=== PATIENT | male | born 1955 | race Caucasian/White ===

== ENCOUNTER 2019-07-18 07:02 | Outpatient (CLI) | payer OTHER, SELFPAY ==
--- NOTE | ~2019-07-18 | XR_ITS ---
XR cervical spine 4-5V DATE: 07/18/2019 07:34 INDICATION: Posterior neck pain radiating down right side. No injury. TECHNIQUE: AP, open-mouth, lateral, swimmer views COMPARISON: None FINDINGS: There is minimal anterolisthesis at C4-5 and C5-6. C1 and C2 are normally aligned and the odontoid process is intact. No fracture or dislocation or lock ed facet. No prevertebral soft tissue swelling. Cervical interspaces are relatively preserved. Degenerative changes are noted at the apophyseal joints. 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 IMPRESSION: Minimal anterolisthesis at C4-5 and C5-C6; degenerative change at t he apophyseal joints
[2019-07-18 07:35] LABS: Basophils Percent Auto 0.6 % (0.2-1.2); Eosinophils Absolute Auto 0.1 K/mm3 (0-0.3); Eosinophils Percent Auto 2.6 % (0-4.4); Hematocrit 41.1 % (42.0-52.0); Hemoglobin 13.9 g/dL (14.0-18.0); Immature Granulocyte Absolute 0.02 K/mm3 (0.00-0.031); Immature Granulocyte Percent A 0.4 % (0-0.5); Lymphocytes Absolute Auto 1.73 K/mm3 (0.9-3.2); Lymphocytes Percent Auto 32.1 % (18.3-44.2); Mean Corpuscular HGB Conc 33.8 g/dl (32-36); Mean Corpuscular Hemoglobin 31.7 pg (26-34); Mean Corpuscular Volume 93.6 fl (80-100); Monocytes Absolute Auto 0.6 K/mm3 (0.1-0.6); Monocytes Percent Auto 10.8 % (2.6-8.5); Neutrophils Absolute Auto 2.9 K/mm3 (1.3-6.7); Neutrophils Percent Auto 53.5 % (45.5-73.1); Platelet Count Result 245 k/mm3 (150-375); Red Blood Count 4.39 M/mm3 (4.6-6.20); Red Cell Distribution Width 12.2 % (11.5-14.5); White Blood Count 5.4 K/mm3 (4.5-10.0)
[2019-07-18 07:42] LABS: Hemoglobin A1C 7.5 % (<5.7)
[2019-07-18 07:46] LABS: Alanine Aminotransferase 24 U/L (4-50); Albumin Level 4.4 g/dL (3.5-5.1); Aspartate Amino Transferase 28 U/L (17-59); Bilirubin,Total 0.4 mg/dL (0.2-1.3); Blood Urea Nitrogen 25 mg/dL (9-20); Calcium 9.1 mg/dL (8.4-10.2); Estimated Glomerular Filt Rate > 60; Sodium 137 mmol/L (137-145); Triglycerides 205 mg/dL (<150)
[2019-07-18 09:59] LABS: Alkaline Phosphatase 63 U/L (38-126); Carbon Dioxide 26 mmol/L (22-30); Chloride 104 mmol/L (98-107); Cholesterol 147 mg/dL (0-200); Glucose 126 mg/dL (75-110); HDL Direct 40 mg/dL; LDL Cholesterol Direct 74 mg/dL; Potassium 4.5 mmol/L (3.4-5.0)
== END 2019-07-18 07:03 | disposition home or self-care (01) ==
PROVIDERS: PCP Family Medicine; Visit Provider Family Medicine
DX: E11.9 Type 2 diabetes mellitus without complications (principal); E78.5 Hyperlipidemia, unspecified; I10 Essential (primary) hypertension; M54.2 Cervicalgia; M43.12 Spondylolisthesis, cervical region
CPT/HCPCS: 36415; 72050; 80053; 80061; 83036; 85025